=== PATIENT | male | born 1940 | race Caucasian/White ===

== ENCOUNTER → 2016-11-17 | Outpatient (CLI) | payer MEDICARE, OTHER ==
[~2016-11-17] MED LIST: /ESOM40CA PO; ACET-654 PO; ASPI325T5 PO; BISAC5TA PO; LISI5TAB PO; VITA200015 PO; ZOCO40TA PO
--- NOTE | 2016-11-17 10:36 | REP ---
Left lower extremity Duplex Doppler venous ultrasound: Real time compression and duplex Doppler interrogation of the left lower extremity deep venous system is performed. The left common femoral, superficial femoral and popliteal veins are fully compressible with transducer pressure and demonstrate normal spontaneous and phasic flow, without evidence of deep venous thrombosis. Impression: No evidence of deep venous thrombosis of the left lower extremity femoral popliteal venous system. Signed by Saturnino Wilson MD 11/17/2016 10:27 A
== END ==
LOC: M RAD 09:48
PROVIDERS: ATTEND Internal Medicine
DX: M79.662 Pain in left lower leg (principal)

== ENCOUNTER 2017-04-10 09:40 | Emergency (ER) | payer MEDICARE, OTHER ==
[~2017-04-10] VITALS: Ht 175.3 cm; Wt 93.9 kg
[2017-04-10] MEDS ORDERED: LOSA50TA20 PO (09:58)
[2017-04-10] MEDS ORDERED: AMLO5TAB2 (09:58)
[2017-04-10] MEDS ORDERED: ROPI2TAB (09:58)
[2017-04-10] MEDS ORDERED: MONT10TA2 PO (09:58)
[2017-04-10] MEDS ORDERED: FURO20TA2 (09:58)
[2017-04-10 11:26] LABS: BASO % 0.7 % (0.0-1.0); EOS # 0.2 K/mm3 (0.0-0.50); EOS % 2.5 % (0.0-3.0); LARGE UNSTAINED CELL # 0.1 K/mm3 (0.0-0.4); LARGE UNSTAINED CELL % 1.4 % (0.0-4.0); LYMPH # 0.9 K/mm3 (1.5-4.5); LYMPH % 14.2 % (24.0-44.0); MEAN CORPUSCULAR HEMOGLOBIN 31.9 pg (27.0-33.0); MEAN CORPUSCULAR HGB CONC 34.7 g/dl (32.0-36.5); MEAN CORPUSCULAR VOLUME 91.7 fl (80.0-96.0); MONO # 0.4 K/mm3 (0.0-0.8); MONO % 5.5 % (0.0-5.0); NEUTROPHILS % 75.7 % (36.0-66.0); PLATELET COUNT, AUTOMATED 203 k/mm3 (150-450); RED CELL DISTRIBUTION WIDTH 12.2 % (11.5-14.5); WHITE BLOOD COUNT 6.6 K/mm3 (4.0-10.0)
[2017-04-10 11:57] LABS: ANION GAP 7 MEQ/L (8-16); BLOOD UREA NITROGEN 20 MG/DL (7-18); CALCIUM LEVEL 9.1 MG/DL (8.8-10.2); CARBON DIOXIDE LEVEL 30 MEQ/L (21-32); CHLORIDE LEVEL 102 MEQ/L (98-107); CREATININE FOR GFR 1.09 MG/DL (0.70-1.30); GLOMERULAR FILTRATION RATE > 60.0 (>42); GLUCOSE, FASTING 96 MG/DL (83-110); MAGNESIUM LEVEL 2.4 MG/DL (1.8-2.4); POTASSIUM SERUM 4.1 MEQ/L (3.5-5.1); SODIUM LEVEL 139 MEQ/L (136-145)
[2017-04-10 14:22] VITALS: BP 180/90
--- NOTE | 2017-04-10 19:27 | REP ---
Chest x-ray: Two views: History: Chest pain. Comparison chest x-ray 12/08/2014. There is benign pleural thickening along the right lateral chest wall. There is a granulomatous calcification in the in the right base laterally as well. Some mild linear fibrosis is seen on the right. These findings are unchanged. Heart is not felt to be enlarged. The diaphragms are somewhat flattened and the lungs are slightly hyperinflated. There are degenerative changes in the thoracic spine and aorta. Pulmonary vasculature is not increased. Impression: Pleuroparenchymal fibrosis and calcified granuloma right base. Otherwise no acute disease. Signed by Cade Calloway MD 04/11/2017 08:00 A
--- NOTE | 2017-04-10 21:14 | ECGEPIP ---
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
== END 2017-04-10 14:27 | disposition home or self-care (01) ==
LOC: M ED 09:40
DX: R00.1 Bradycardia, unspecified (principal); I51.9 Heart disease, unspecified; Z95.5 Presence of coronary angioplasty implant and graft; Z82.49 Family history of ischemic heart disease and other diseases of the circulatory system; J84.10 Pulmonary fibrosis, unspecified; Z79.82 Long term (current) use of aspirin; Z79.899 Other long term (current) drug therapy; Z88.8 Allergy status to other drugs, medicaments and biological substances

== ENCOUNTER 2017-04-22 06:47 | Emergency (ER) | payer MEDICARE, OTHER ==
[~2017-04-22] VITALS: Ht 175.3 cm; Wt 90.9 kg
[~2017-04-22 06:47] MED LIST changes: +AMLO5TAB2; +FURO20TA2; +LOSA50TA20 PO; +MONT10TA2 PO; +ROPI2TAB
[2017-04-22] MEDS ORDERED: ROPI2TAB PO (06:59)
[2017-04-22] MEDS ORDERED: REQU5TAB PO (06:59)
[2017-04-22 07:01] VITALS: BP 161/69
--- NOTE | 2017-04-22 10:26 | ECGEPIP ---
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
== END 2017-04-22 07:37 | disposition home or self-care (01) ==
LOC: M ED 06:47
DX: R00.1 Bradycardia, unspecified (principal); I10 Essential (primary) hypertension; Z79.82 Long term (current) use of aspirin; Z79.899 Other long term (current) drug therapy; Z88.8 Allergy status to other drugs, medicaments and biological substances; Z95.5 Presence of coronary angioplasty implant and graft

== ENCOUNTER 2017-04-27 16:46 | Inpatient (IN) | payer MEDICARE, OTHER ==
[~2017-04-27] VITALS: Ht 175.3 cm; Wt 96.3 kg
[~2017-04-27 16:46] MED LIST changes: +REQU5TAB PO; +ROPI2TAB PO
[2017-04-27] MEDS ORDERED: FURO20TA2 PO (17:00)
[2017-04-27 20:01] LABS: BASO % 0.4 % (0.0-1.0); EOS # 0.2 K/mm3 (0.0-0.50); EOS % 3.9 % (0.0-3.0); LARGE UNSTAINED CELL # 0.2 K/mm3 (0.0-0.4); LARGE UNSTAINED CELL % 2.8 % (0.0-4.0); LYMPH # 1.2 K/mm3 (1.5-4.5); LYMPH % 20.7 % (24.0-44.0); MEAN CORPUSCULAR HEMOGLOBIN 32.2 pg (27.0-33.0); MEAN CORPUSCULAR HGB CONC 35.2 g/dl (32.0-36.5); MEAN CORPUSCULAR VOLUME 91.6 fl (80.0-96.0); MONO # 0.4 K/mm3 (0.0-0.8); MONO % 7.5 % (0.0-5.0); NEUTROPHILS # 3.6 K/mm3 (1.8-7.7); NEUTROPHILS % 64.7 % (36.0-66.0); PLATELET COUNT, AUTOMATED 171 k/mm3 (150-450); RED CELL DISTRIBUTION WIDTH 12.6 % (11.5-14.5); WHITE BLOOD COUNT 5.6 K/mm3 (4.0-10.0)
[2017-04-27 20:42] LABS: ALBUMIN 3.7 GM/DL (3.2-5.2); ALBUMIN/GLOBULIN RATIO 1.37 (1.00-1.93); ALKALINE PHOSPHATASE 62 U/L (45-117); ALT/SGPT 23 U/L (12-78); ANION GAP 8 MEQ/L (8-16); AST/SGOT 22 U/L (15-37); BILIRUBIN,DIRECT 0.2 MG/DL (0.0-0.2); BILIRUBIN,TOTAL 0.8 MG/DL (0.2-1.0); BLOOD UREA NITROGEN 19 MG/DL (7-18); CALCIUM LEVEL 8.3 MG/DL (8.8-10.2); CARBON DIOXIDE LEVEL 30 MEQ/L (21-32); CHLORIDE LEVEL 106 MEQ/L (98-107); CREATININE FOR GFR 1.08 MG/DL (0.70-1.30); GLOMERULAR FILTRATION RATE > 60.0 (>42); GLUCOSE, FASTING 83 MG/DL (83-110); SODIUM LEVEL 144 MEQ/L (136-145); TOTAL PROTEIN 6.4 GM/DL (6.4-8.2)
[2017-04-27] MEDS ORDERED: SIMVASTATIN 20 MG TAB PO ONE (21:00)
--- NOTE | 2017-04-27 21:20 | REPUSA ---
CT of the head Clinical history: altered mental status. Comparison: 12/01/2012. Technique: Multiple axial CT images were obtained through the head without administration of contrast . Findings: The ventricles and sulci are symmetric bilaterally. There is no evidence of acute hemorrhag e or infarct. There is no midline shift, mass effect, or extra-axial fluid collection. The osseous st ructures are unremarkable. The visualized paranasal sinuses and mastoid air cells are clear. Impression: Negative study.
[2017-04-27] MEDS ORDERED: PANT40TA2 PO (22:28)
[2017-04-27] MEDS ORDERED: ADV250INH INH (22:30)
[2017-04-27] MEDS ORDERED: FEXO180T58 PO (22:30)
[2017-04-27] MEDS ORDERED: AMLO5TAB2 PO (22:30)
[2017-04-28] VITALS (7 sets, daily range): BP systolic 138–160; BP diastolic 68–84
[2017-04-28] MEDS ORDERED: ACETAMINOPHEN TAB 650MG DOSE (2X325MG) PO PRN (01:30)
--- NOTE | 2017-04-28 04:30 | REPUSA ---
CLINICAL HISTORY: Dizziness, carotid bruit. COMMENTS: Real time sonography with duplex doppler of the carotid arteries bilaterally was performed. Evaluation reveals no evidence of atheromatous plaque within the carotid arteries bilaterally. Calcified atheromatous plaques in the carotid bulbs extending to the proximal aspect of the internal and external carotid arteries. Normal peak systolic velocities. Right ICA/CCA ratio 1.31. Left ICA/CCA ratio 1.09. Flow in the right vertebral artery is antegrade. Flow in the left vertebral artery is antegrade. IMPRESSION: Bilateral less than 50% stenosis of the internal carotid arteries secondary to atheromatous disease. Antegrade flow in the vertebral arteries. Thank you for your kind referral of this patient.
--- NOTE | 2017-04-28 08:30 | ECGEPIP ---
Stationary ECG Study [facility] Test Date: 2017-04-28 Pat Name: JUAN JOSE MATOS Department: ED - INP Room: [place] [address] Gender: M Line Technician: : 1940 Requested By: Virgen Whitaker [facility] Order Number: [id number] Reading MD: Brett Mckeon Measurements Intervals [place] Rate: 52 P: 62 MT: 211 QRS: 9 QRSD: 94 T: 4 QT: 427 QTc: 400 Interpretive Statements Sinus bradycardia with first degree AV block Early anterior R wave progression Consider left ventricular hypertrophy No significant change when compared to prior tracing of 04/27/2017 Electronically Signed On 04-28-2017 8:29:56 EDT by Brett Mckeon
[2017-04-28 08:58] LABS: ALBUMIN 3.7 GM/DL (3.2-5.2); ALBUMIN/GLOBULIN RATIO 1.37 (1.00-1.93); ALKALINE PHOSPHATASE 66 U/L (45-117); ALT/SGPT 24 U/L (12-78); ANION GAP 5 MEQ/L (8-16); AST/SGOT 18 U/L (15-37); BILIRUBIN,TOTAL 0.8 MG/DL (0.2-1.0); BLOOD UREA NITROGEN 19 MG/DL (7-18); CALCIUM LEVEL 8.1 MG/DL (8.8-10.2); CARBON DIOXIDE LEVEL 30 MEQ/L (21-32); CHLORIDE LEVEL 109 MEQ/L (98-107); CREATININE FOR GFR 1.06 MG/DL (0.70-1.30); GLOMERULAR FILTRATION RATE > 60.0 (>42); GLUCOSE, FASTING 96 MG/DL (83-110); MAGNESIUM LEVEL 2.2 MG/DL (1.8-2.4); POTASSIUM SERUM 4.2 MEQ/L (3.5-5.1); SODIUM LEVEL 144 MEQ/L (136-145); T UPTAKE 38 % (33-40); THYROXINE (T4) 9.5 UG/DL (4.5-12.0); TOTAL PROTEIN 6.4 GM/DL (6.4-8.2)
[2017-04-28 09:01] LABS: BASO % 0.6 % (0.0-1.0); EOS # 0.2 K/mm3 (0.0-0.50); EOS % 3.7 % (0.0-3.0); LARGE UNSTAINED CELL # 0.1 K/mm3 (0.0-0.4); LYMPH # 0.8 K/mm3 (1.5-4.5); LYMPH % 14.7 % (24.0-44.0); MEAN CORPUSCULAR VOLUME 91.6 fl (80.0-96.0); MONO # 0.5 K/mm3 (0.0-0.8); NEUTROPHILS # 3.7 K/mm3 (1.8-7.7); PLATELET COUNT, AUTOMATED 183 k/mm3 (150-450); RED CELL DISTRIBUTION WIDTH 12.4 % (11.5-14.5); WHITE BLOOD COUNT 5.3 K/mm3 (4.0-10.0)
[2017-04-28 09:04] LABS: MEAN CORPUSCULAR HGB CONC 36.8 g/dl (32.0-36.5)
[2017-04-28] MEDS: MONTELUKAST 10 MG TAB PO SCH (09:23)
[2017-04-28] MEDS: ASPIRIN ENTERIC 325 MG TAB PO SCH (09:23)
[2017-04-28] MEDS: PANTOPRAZOLE 40MG TAB (PROTONIX) PO SCH (09:24)
[2017-04-28] MEDS: FUROSEMIDE 20 MG TAB PO SCH (09:24)
[2017-04-28] MEDS: FEXOFENADINE 60 MG TAB PO SCH (09:24)
[2017-04-28] MEDS: amLODIPine 5 MG TAB PO SCH (09:26)
[2017-04-28] MEDS: LOSARTAN 50 MG TAB PO SCH (09:26)
[2017-04-28] MEDS: ADVAIR HFA 115/21MCG INHALER INH SCH (11:21)
--- NOTE | 2017-04-28 12:34 | HPE ---
DATE OF ADMISSION: 04/28/2017 CHIEF COMPLAINT: Altered mental status. This is a 76-year-old male with a history of hypertension, coronary artery disease, gastroesophageal reflux disease (GERD), hyperlipidemia, diverticulosis. His reports that he has been seeing weird off the wall things, seeing a man in a yellow coat across the street. They have been going on for 3 or 4 days per the granddaughter. He had some hallucinations off and on for at least a week. He was going to go to the office. Dr. Arellano, his primary care provider, instructed him to come to the emergency room. He was seen in the emergency room (ER) for bradycardia with a heart rate in the 40s on 04/22/2017 and was set up for an outpatient followup with Dr. Talbert. The patient states he did go. He believes he wore a monitor. Upon arrival in the emergency room, blood pressure was 170/81, pulse was 52, temperature 99. Oxygen saturation was 97% on room air. Laboratory studies were done. WBC was 5.6, hemoglobin 13.4, hematocrit 38.2, platelets were 171. Electrolytes were normal. BUN was 19, creatinine was 1.08. CPK was 209. Troponin was less than 0.02. Lactic acid was 0.8. He had a CT of his head, which was negative. He was alert and oriented to person and place but was a poor historian when discussing when he saw his doctor last, if he saw the regional engagement consultant, what he had done. He had no complaints of weakness of extremities, tingling or numbness of extremities. No blurry or double vision or headache, just, per the granddaughter, seeing things, saying inappropriate things that made no sense. Physical exam was unremarkable. Telemetry showed heart rate in the 40s. The patient will be admitted to observation status to the service of Dr. Charlton for altered mental status and bradycardia on the progressive care unit (PCU). ALLERGIES: ATORVASTATIN. PRIMARY CARE PROVIDER: Dr. Karon Arellano SOCIAL HISTORY: He is . Ethyl alcohol (ETOH): He quit n 1986 Smoking History: He smoked 2-1/2 packs a day for, he states, many years. He quit in 1969. PAST MEDICAL HISTORY: Hypertension. Coronary artery disease. Gastroesophageal reflux disease. Vitamin D deficiency. Hyperlipidemia. Diverticulosis. Environmental allergies. PAST SURGICAL HISTORY: Two cardiac stents, 2002. Back surgery, 1986. Skin graft and surgery times three to the right arm from compartment syndrome caused by streptococcus infection. Right ankle surgery, 1969. Right knee surgery, 1981. CURRENT MEDICATIONS: - amlodipine 5 mg by mouth daily - aspirin 325 mg by mouth daily - fexofenadine 180 mg by mouth daily - furosemide 20 mg by mouth daily - losartan 50 mg by mouth daily - Singulair 10 mg by mouth daily - pantoprazole 40 mg by mouth daily - simvastatin 40 mg by mouth daily - Advair Diskus 250-50 one inhalation twice a day - vitamin D 2000 units by mouth daily - Requip 2 mg by mouth nightly, which I will hold at this time as it can cause hallucinations. FAMILY HISTORY: Noncontributory. REVIEW OF SYSTEMS: No complaint of headache. No blurry or double vision. No fever, no chills, no tinnitus. No hoarseness. No difficulty swallowing. No lightheadedness. He says he has had dizziness off and on and per the granddaughter, she believes he has had it off and on for approximately 2 months. He is unsure of how long he has had it. Cardiovascular: No complaints of chest pain, shortness of breath, palpitations or edema. Respiratory: No chronic cough. No sputum production. No hemoptysis. No orthopnea. No wheeze. Gastrointestinal: No nausea, vomiting or diarrhea. No hematochezia. No melena. No complaints of abdominal pain. Genitourinary: No hematuria, dysuria, frequency. Musculoskeletal: No joint redness or swelling. Endocrine: No polyuria, polydipsia, polyphagia. Hematological: No history of anemia. Neurological: No history of seizures. No paresthesias or paralysis. Altered mental status, hallucinations - visual hallucinations. Psychological: No anxiety, depression or suicidal ideations. PHYSICAL EXAMINATION: A 76-year-old cooperative male in no acute distress. Blood pressure 143/65, pulse 48, respirations 18, oxygen saturation 97% on room air. The patient is alert and oriented to person, place and time. Pupils are equal and reactive to light. Extraocular movements intact. Cornea and sclerae clear. Conjunctivae is normal. No facial asymmetry. Pharynx: Tongue and gums pink and moist. Tongue is midline. Neck is supple without lymphadenopathy. No thyromegaly. No goiter. Carotids: 2+ without bruits. Chest is clear to auscultation without wheeze or retractions. Heart is regular. Abdomen is benign. Bowel sounds are positive. Genital/Rectal: Not done. Extremities show equal strength, full range of motion. No cyanosis, clubbing or edema. Peripheral pulses equal and palpable bilaterally. Skin is warm and dry. IMPRESSION AND PLAN: Altered mental status, visual hallucinations, episodic dizziness, hypertension. The patient will be admitted to progressive care unit (PCU). Will get a carotid ultrasound, serial cardiac enzymes. Repeat CBC and CMP, thyroid profile. The patient will admitted to the PCU to the service of Dr. Charlton, observation status, telemetry monitoring for bradycardia.
[2017-04-28] MEDS: SIMVASTATIN 40 MG TAB PO SCH (21:03)
[2017-04-29] MEDS: ADVAIR HFA 115/21MCG INHALER INH SCH ×3 (02:51→21:11)
[2017-04-29 04:00] VITALS: BP 142/90
--- NOTE | 2017-04-29 05:51 | ECGEPIP ---
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
--- NOTE | 2017-04-29 07:37 | IPNPDOC ---
Text Note Date of Service The patient was seen on 04/29/17. NOTE Subjective: Patient seen and examined at bedside. Apparently patient was restless last night , but easily re-directed. This morning he is ambiguous regarding his recollection of overnight events. He denies any medical complaints. He is agreeable with remaining in the hospital for further workup. Objective: General: NAD, lying comfortably in bed HEENT: NC/AT, EOMI, PERRL Lungs: CTA B/L Heart: +S1S2, bradycardic, systolic murmur Abd: soft, NT, +BS, obese Ext: no edema, maculopapular rash over right knee Neuro: strength 5/5 B/L upper/lower extremities, sensation intact throughout, face symmetrical, CN II-XII grossly intact Psych: alert, awake, oriented to person and time Assessment/Plan: 76 yo male admitted for altered mental status. 1. AMS - no clear acute etiology - suspect underlying dementia - will obtain MRI/MRA for further evaluation 2. Chronic bradycardia - patient states he has been following with Dr. Talbert 3. HTN - continue norvasc, losartan 4. CAD - s/p PCI 2002 - continue statin, aspirin, ARB 5. Hyperlipidemia - continue simvastatin 6. GERD - protonix 7. DVT prophylaxis - mechanical prophylaxis VS,Fishbone, I+O VS, Fishbone, I+O Laboratory Tests 04/28/17 08:04 Red Blood Count 4.19 L, Mean Corpuscular Volume 91.6, Mean Corpuscular Hemoglobin 34.0 H, Mean Corpuscular Hemoglobin Concent 36.8 H, Red Cell Distribution Width 12.4, Neutrophils (%) (Auto) 70.0 H, Lymphocytes (%) (Auto) 14.7 L, Monocytes (%) (Auto) 9.0 H, Eosinophils (%) (Auto) 3.7 H, Basophils (%) (Auto) 0.6, Neutrophils # (Auto) 3.7, Lymphocytes # (Auto) 0.8 L, Monocytes # ( Auto) 0.5, Eosinophils # (Auto) 0.2, Basophils # (Auto) 0.0, Calcium Level 8.1 L , Aspartate Amino Transf (AST/SGOT) 18, Alanine Aminotransferase (ALT/SGPT) 24, Alkaline Phosphatase 66, Total Bilirubin 0.8, Total Protein 6.4, Albumin 3.7 Vital Signs Date Time Temp Pulse Resp B/P (MAP) Pulse Ox O2 Delivery O2 Flow Rate FiO2 04/29/17 04:00 97.4 64 16 142/90 (107) 99 Room Air LAUREL HUDSON MD Apr 29, 2017 07:37
[2017-04-29 08:00] VITALS: BP 140/72
[2017-04-29] MEDS: ASPIRIN ENTERIC 325 MG TAB PO SCH (08:26)
[2017-04-29] MEDS: PANTOPRAZOLE 40MG TAB (PROTONIX) PO SCH (08:28)
[2017-04-29] MEDS: FEXOFENADINE 60 MG TAB PO SCH (08:28)
[2017-04-29] MEDS: FUROSEMIDE 20 MG TAB PO SCH (08:28)
[2017-04-29 08:33] LABS: ANION GAP 8 MEQ/L (8-16); BLOOD UREA NITROGEN 16 MG/DL (7-18); CALCIUM LEVEL 8.6 MG/DL (8.8-10.2); CARBON DIOXIDE LEVEL 28 MEQ/L (21-32); CHLORIDE LEVEL 106 MEQ/L (98-107); CREATININE FOR GFR 0.95 MG/DL (0.70-1.30); GLOMERULAR FILTRATION RATE > 60.0 (>42); GLUCOSE, FASTING 104 MG/DL (83-110); POTASSIUM SERUM 4.1 MEQ/L (3.5-5.1); SODIUM LEVEL 142 MEQ/L (136-145)
[2017-04-29 08:34] LABS: BASO % 0.4 % (0.0-1.0); EOS % 0.6 % (0.0-3.0); LARGE UNSTAINED CELL # 0.1 K/mm3 (0.0-0.4); LARGE UNSTAINED CELL % 0.8 % (0.0-4.0); LYMPH # 0.5 K/mm3 (1.5-4.5); LYMPH % 7.5 % (24.0-44.0); MEAN CORPUSCULAR HEMOGLOBIN 32.4 pg (27.0-33.0); MEAN CORPUSCULAR HGB CONC 35.4 g/dl (32.0-36.5); MEAN CORPUSCULAR VOLUME 91.5 fl (80.0-96.0); MONO # 0.3 K/mm3 (0.0-0.8); MONO % 3.7 % (0.0-5.0); NEUTROPHILS # 5.9 K/mm3 (1.8-7.7); NEUTROPHILS % 86.9 % (36.0-66.0); PLATELET COUNT, AUTOMATED 186 k/mm3 (150-450); RED CELL DISTRIBUTION WIDTH 12.4 % (11.5-14.5); WHITE BLOOD COUNT 6.8 K/mm3 (4.0-10.0)
[2017-04-29] MEDS: amLODIPine 5 MG TAB PO SCH (08:34)
[2017-04-29] MEDS: LOSARTAN 50 MG TAB PO SCH (08:34)
[2017-04-29] MEDS: MONTELUKAST 10 MG TAB PO SCH (08:38)
[2017-04-29 12:00] VITALS: BP 158/80
[2017-04-29 16:00] VITALS: BP 144/80
[2017-04-29] MEDS: SIMVASTATIN 40 MG TAB PO SCH (20:14)
[2017-04-29 20:15] VITALS: BP 142/84
[2017-04-30 00:29] VITALS: BP 133/64
[2017-04-30 04:00] VITALS: BP 149/66
[2017-04-30] MEDS: ADVAIR HFA 115/21MCG INHALER INH SCH ×2 (07:40→20:59)
[2017-04-30 08:22] VITALS: BP 128/72
[2017-04-30] MEDS: FEXOFENADINE 60 MG TAB PO SCH (09:04)
[2017-04-30] MEDS: ASPIRIN ENTERIC 325 MG TAB PO SCH (09:04)
[2017-04-30] MEDS: FUROSEMIDE 20 MG TAB PO SCH (09:04)
[2017-04-30] MEDS: MONTELUKAST 10 MG TAB PO SCH (09:04)
[2017-04-30] MEDS: LOSARTAN 50 MG TAB PO SCH (09:05)
[2017-04-30] MEDS: amLODIPine 5 MG TAB PO SCH (09:06)
[2017-04-30] MEDS: PANTOPRAZOLE 40MG TAB (PROTONIX) PO SCH (09:06)
[2017-04-30 12:00] VITALS: BP 110/70
--- NOTE | 2017-04-30 12:50 | IPN ---
DATE: 04/30/2017 Mr. Ballard has been up and walking around today with the staff in the hallway. He is somewhat overactive, but not agitated, although when his is in the room he is quite confrontational and is convinced that she is having an affair, which seems exceedingly unlikely and the patient's denies. Temperature is 99.3, T-max 101.1, pulse 52, respiratory rate 18, blood pressure 128/72, 98% on room air. Intake and output notable for a positive fluid balance of 840 yesterday, no bowel movements. Body mass index (BMI) 28.7. He is awake, answering questions appropriately, somewhat labile in his affect. He is averting to my gaze. Neck is supple. Breathing is symmetrical, rested. I-to-E ratio is 1:3. He is speaking in complete sentences. No accessory muscle use. Heart is distant sounding. Normal S1 and S2. He is borderline bradycardic with a rate right around 60 on my exam. Radial pulses 2+. Capillary refill is less than 2 seconds. Abdomen is soft, doughy, nontender. There is no significant lower extremity edema. White count is 6.8, hemoglobin 15.1, and platelets of 186. BUN 16, creatinine 0.95. My assessment is as follows: This is a 76-year-old admitted with metabolic encephalopathy. Plan is as follows: 1. Metabolic encephalopathy. This is apparently a waxing and waning course over months. This is much worse than baseline. This is associated with fever of infectious etiology. The patient has been cultured. There is no way to obtain a lumbar puncture based on his mental status currently. Will start empiric antibiotic therapy and obtain a lumbar puncture when able. MRI and MRA are not likely to be obtained at this point, again based on his mental status. 2. The patient has chronic bradycardia and is followed by Dr. Talbert. No evidence of heart block on the monitor. 3. The patient has hypertension, on Norvasc and losartan. 4. The patient has coronary artery disease, status post percutaneous intervention in 2002. 5. The patient has hyperlipidemia. 6. The patient has gastroesophageal reflux disease (GERD). I did discuss his case with the patient's in person.
[2017-04-30] MEDS: HALOPERIDOL 5 MG/ML VIAL (J1630) IV PRN (13:08)
[2017-04-30] MEDS: risperiDONE 0.5 MG TAB PO SCH ×3 (13:36→22:17)
[2017-04-30] MEDS: ACYCLOVIR IV SCH ×2 (13:36→22:17)
[2017-04-30] MEDS: NS IV SCH ×2 (13:36→22:17)
[2017-04-30 16:00] VITALS: BP 160/80
[2017-04-30 20:00] VITALS: BP 132/64
[2017-04-30] MEDS: SIMVASTATIN 40 MG TAB PO SCH (22:17)
[2017-05-01] VITALS: BP 133/63
[2017-05-01 04:00] VITALS: BP 137/61
[2017-05-01] MEDS: NS IV SCH ×2 (06:32→14:55)
[2017-05-01] MEDS: ACYCLOVIR IV SCH ×2 (06:32→14:55)
[2017-05-01] MEDS ORDERED: LORazepam 2 MG/ML VIAL (J2060) IV ONE (07:00)
[2017-05-01 08:00] VITALS: BP 151/69
[2017-05-01] MEDS: ADVAIR HFA 115/21MCG INHALER INH SCH ×2 (08:20→20:52)
[2017-05-01] MEDS: FEXOFENADINE 60 MG TAB PO SCH (08:46)
[2017-05-01] MEDS: FUROSEMIDE 20 MG TAB PO SCH (08:47)
[2017-05-01] MEDS: risperiDONE 0.5 MG TAB PO SCH (08:47)
[2017-05-01] MEDS: LOSARTAN 50 MG TAB PO SCH (08:47)
[2017-05-01] MEDS: MONTELUKAST 10 MG TAB PO SCH (08:48)
[2017-05-01] MEDS: amLODIPine 5 MG TAB PO SCH (08:48)
[2017-05-01 12:00] VITALS: BP 154/74
--- NOTE | 2017-05-01 16:51 | IPN ---
DATE: 05/01/2017 Mr. Ballard slept most of the night. There are no complaints of pain, chest pain, shortness of breath. Would like to be out of the hospital today. Temperature is 97.2, pulse 64, respirations 18, blood pressure 151/69, 98% on room air, maximum temperature in the last 24 hours are all within the normal range. Intake and output notable for a positive fluid balance of 1205. Body mass index 29.0. He is awake, appropriately interactive. Somewhat focused on leaving the hospital and seems somewhat distracted in his thought process. Mucous membranes moist. Neck supple. Breathing is symmetrical. Inspiratory to expiratory (I-to-E) ratio is 1:3. No accessory muscle use. Speaking in complete sentences. Heart is distant sounding. Normal S1, S2. He did have four beats of ventricular tachycardia this morning. Normal QTC on EKG. Abdomen soft, doughy, nontender. White cell count 6.8, hemoglobin 15.1, platelets of 186. BUN 16, creatinine 0.95. Urine culture is no growth of clinical significance for one organism. Blood culture, which he would allow one to be taken, is thus far negative. ASSESSMENT: This is a 76-year-old with metabolic encephalopathy. PLAN: 1. Metabolic encephalopathy. The patient did have fever yesterday. I would like to obtain a lumbar puncture (LP) and an MRI. Patient is unable to get MRI based on the fact that he is grossly claustrophobic. He is consenting to an LP today. Ativan has been ordered to assist in this. 2. Patient has chronic bradycardia. He is followed by Dr. Talbert. No evidence of heart block on monitor or EKG. He has had four betas of ventricular tachycardia. QTC is in the acceptable limits. 3. Patient has hypertension, on Norvasc and losartan. 4. Patient has coronary artery disease, status post percutaneous intervention in 2002. 5. Patient has hyperlipidemia. 6. Patient has gastroesophageal reflux disease (GERD). 7. Patient's mental status is improved from yesterday, but he does not have the capacity to make reasonable decisions at the time of my evaluation this morning.
[2017-05-01 17:06] LABS: GLUCOSE CSF 71 MG/DL (40-75)
[2017-05-01 17:40] LABS: APPEARANCE, CSF CLEAR (CLEAR); COLOR, CSF COLORLESS (COLORLESS); CSF DIFF IF INDICATED? NO (NO); CSF TUBE# CELL CNT TUBE 1
[2017-05-01 17:43] LABS: APPEARANCE, CSF CLEAR (CLEAR); COLOR, CSF COLORLESS (COLORLESS); CSF DIFF IF INDICATED? NO (NO); CSF TUBE# CELL CNT TUBE 4
[2017-05-01] MEDS: HALOPERIDOL 5 MG/ML VIAL (J1630) IV PRN (18:01)
[2017-05-01 20:00] VITALS: BP 128/98
--- NOTE | 2017-05-01 21:10 | ECGEPIP ---
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
[2017-05-02] VITALS (7 sets, daily range): BP systolic 134–175; BP diastolic 61–79
[2017-05-02] MEDS: SIMVASTATIN 40 MG TAB PO SCH ×2 (00:30→21:21)
[2017-05-02] MEDS: ASPIRIN ENTERIC 325 MG TAB PO SCH ×2 (00:31→21:21)
[2017-05-02] MEDS: PANTOPRAZOLE 40MG TAB (PROTONIX) PO SCH ×2 (00:31→21:21)
[2017-05-02] MEDS: risperiDONE 0.5 MG TAB PO SCH ×3 (00:31→21:21)
[2017-05-02] MEDS: ADVAIR HFA 115/21MCG INHALER INH SCH ×2 (07:50→21:02)
[2017-05-02] MEDS: FEXOFENADINE 60 MG TAB PO SCH ×2 (08:34→09:00)
[2017-05-02] MEDS: HALOPERIDOL 5 MG/ML VIAL (J1630) IV PRN (08:35)
[2017-05-02] MEDS: FUROSEMIDE 20 MG TAB PO SCH ×2 (08:35→13:38)
[2017-05-02] MEDS: MONTELUKAST 10 MG TAB PO SCH (08:35)
[2017-05-02] MEDS: LOSARTAN 50 MG TAB PO SCH (08:35)
--- NOTE | 2017-05-02 09:40 | REP ---
LUMBAR PUNCTURE: The procedure was performed by Izzy Stark under the direct supervision of Dr. Wilson. The procedure along with its risks, benefits and complications were discussed with the patient prior to the examination. Informed consent was obtained both verbally and written. An appropriate site was chosen for needle entry under fluoroscopic guidance. This are was marked, prepped and draped in the usual sterile fashion. A procedural time-out was performed to ensure that the correct patient site and procedure were being performed. Local infiltrative anesthesia was achieved using 1% Lidocaine. Lumbar puncture was performed under fluoroscopic guidance at L3-4 via a right oblique sublaminar approach using a 3.5-inch, 22-gauge spinal needle. Retro free flow of clear CSF was obtained. 12 mL of CSF was collected and sent to the lab for investigation; the results pending. The patient tolerated the procedure well and had no immediate complications. Fluoroscope time: 39 seconds. IMPRESSION: Fluoroscopic-guided lumbar puncture with no immediate complications. Signed by Eric Wilson MD 05/02/2017 04:52 P
[2017-05-02] MEDS: amLODIPine 5 MG TAB PO SCH (13:38)
--- NOTE | 2017-05-02 16:46 | IPN ---
DATE: 05/02/2017 Mr. Ballard became somewhat agitated yesterday after having his lumbar puncture. He did have a dose of Ativan which apparently was quite activating for him. Last night he did receive Haldol and Risperdal and slept fitfully. This morning he has no complaints of pain and he wants to go home. Temperature 98, pulse 64, respiratory rate 18, blood pressure 157/67, 99% on room air. Intake and output notable for a negative fluid status of -180. No bowel movements noted. Weight is 90.2 kg, body mass index 29.4. He is awake, appropriately interactive. Breathing is symmetrical and rested. Heart is distant sounding. Abdomen is soft, doughy, nontender. White count 6.8, hemoglobin 15.1, and platelets of 186. BUN 16, creatinine 0.95. Cerebrospinal fluid (CSF) yesterday was remarkably unremarkable, normal protein, normal glucose, basically a champagne tap. My assessment is as follows: This is a 76-year-old with metabolic encephalopathy. Plan is as follows: 1. Metabolic encephalopathy. I was concerned about the possibility of encephalitis, which seems less likely. I did stop acyclovir. We are going to be unable to get an MRI on this patient. I am unsure what the underlying cause of the encephalopathy is. 2. Patient has chronic bradycardia. No evidence of heart block on EKG or monitor. He can likely be transferred to medical/surgical. 3. Patient has hypertension, which is reasonably well controlled with the current setting. 4. Patient has coronary artery disease, status post percutaneous intervention remotely. 5. Patient has hyperlipidemia. 6. Patient has gastroesophageal reflux disease (GERD).
--- NOTE | 2017-05-02 22:14 | CR ---
DATE OF CONSULTATION: 05/02/2017 REFERRING PROVIDER: Dr. Faisal Carver REASON FOR CONSULTATION: Altered mental status, metabolic encephalopathy. The patient is a 76-year-old male with a past medical history significant for hypertension, coronary artery disease, presenting to [facility] with visual hallucinations. The patient initially had visual hallucinations at the end of December and early January. This first occurred when the patient was at a [facility]. The next day the patient went to go see his primary care doctor, and the hallucinations had subsided. The patient recently started having hallucinations within the past week. The patient was noted to hear commotion outside as well as see people whom he was having a conversation with in the house. Presently the patient has been taken off of his Requip, and his home medication list includes 5 mg Requip that the patient takes at bedtime and 2 mg that he takes in the morning. It is unclear when the patient was placed on Requip. The patient's daughter states that in early January he was started on a new medicine that she looked up and found that is called something beginning with the letter P. She is unsure if it was pramipexole. The patient states he has been treated for restless leg syndrome, although the patient's symptoms include cramping of his muscles below his knees, including his velasquez, gastroc muscles, and foot. The patient denies having any restlessness of his lower extremities or any abnormal paresthesias. He puts on a cream at times, which is helpful in alleviating his muscle cramps. The patient states it only affects his left lower extremity. When the patient was brought to [facility], he was noted to have a temperature. The patient was taken for a spinal tap. The spinal tap was unremarkable with white blood cell (WBC) count 1. Red blood cells (RBC) were not present. Glucose 71, protein 31. The patient's lab work so far has included normal thyroid-stimulating hormone (TSH) and a nonreactive rapid plasma reagin (RPR). His complete blood count (CBC) and comprehensive metabolic panel (CMP) essentially have been unremarkable. The patient has been started on risperidone 0.5 mg twice a day with Haldol as needed. The patient became agitated after receiving Ativan and had to receive Haldol to calm him down. He is able to sleep well through the night it seems. The patient does not have any other cause for visual hallucinations at this time. It is unclear if the patient has baseline Lewy body dementia. I spoke with Dr. Carver, who will be in touch with Dr. Karon Arellano to confirm the timeline of use of ropinirole, which can cause hallucinations. Since the patient has stopped using ropinirole during this hospitalization, he is no longer having visual or auditory hallucinations. Head CT completed so far reveals no acute process. The patient is severely claustrophobic and is refusing to have an MRI. ALLERGIES: ATORVASTATIN. HOME MEDICATIONS: j - Zocor 40 mg by mouth daily - Norvasc 5 mg by mouth daily - Nikole 180 mg by mouth daily - Lasix 20 mg by mouth daily - Cozaar 50 mg by mouth daily - Singulair 10 mg by mouth daily - Advair 115/21 mcg inhaled twice a day - Requip 5 mg by mouth at bedtime - Requip 2 mg by mouth daily PAST MEDICAL HISTORY: 1. Hypertension. 2. Coronary artery disease. 3. Gastroesophageal reflux disease. 4. Vitamin D deficiency. 5. Hyperlipidemia. 6. Diverticulosis. 7. Environmental allergies. PAST SURGICAL HISTORY: 1. Two cardiac stents 2002. 2. Back surgery in 1986. 3. Skin graft surgery times three, right arm, from compartment syndrome, caused by staphylococcus infection. 4. Right ankle surgery 1969. 5. Right knee surgery 1981. FAMILY HISTORY: Noncontributory. REVIEW OF SYSTEMS: A 14-point review of systems negative except as per history of present illness (HPI). PHYSICAL EXAMINATION: Blood pressure 134/68, pulse rate 53, respiratory rate 18, oxygenation 99% on room air. Current height 5 feet 9 inches. Current weight is 90.2 kg. Temperature 98.6 degrees Fahrenheit. The patient is awake, alert, oriented to person, place, and time. Speech, language, comprehension, and repetition are intact. Pupils are 3 mm, round, and reactive to light. Sensation in V1, V2, V3 is intact to light touch. No facial asymmetry to activation. Palate elevates symmetrically. Tongue is midline. No weakness of sternocleidomastoids bilaterally. Hearing is subjectively equal to finger rub. There is no pronator drift. Strength is 5/5, including bilateral deltoids, biceps, triceps, handgrip, iliopsoas, quadriceps, anterior tibialis. Deep tendon reflexes are 2+ throughout. Babinski signs are absent. Sensory is intact to light touch, temperature, and vibration throughout. Coordination: Normal [id number] without any signs of ataxia or dysmetria. Gait is normal. Romberg testing negative. ASSESSMENT: Altered mental status with auditory and visual hallucinations, improving. Etiology of this is unknown at this time, although the patient and family are unclear as to exactly if the patient has been using Requip while at home. Requip can certainly be the cause of the patient's hallucinations more recently. In December and in January the patient may have been on a different medicine that may have caused similar side effects. It is unclear what the name of that medicine was, although the family states it began with the letter P. My suspicion is the patient had been on pramipexole for treatment of restless leg symptoms. I would like to clarify that patient does not have classic symptoms of restless legs based on his description. He describes more of a muscle cramp involving his left lower extremity, anterior velasquez, and gastroc muscles, for which he has to massage the muscles and try to stand on his feet to alleviate the cramp. PLAN 1. Convince the patient to stay in the hospital for at least one more evening as the symptoms continue to improve, and his states that he still not 100% at his baseline, although she does agree that he has not had any further hallucinations within the last 24 hours. The patient will be reassessed tomorrow to see if he can be discharged home. Dr. Carver will get in touch with Dr. Arellano to track down the exact timeline of his restless leg treatments. At this point in time, I would avoid Requip in the future. 2. MRI of the brain can be completed as an outpatient. History obtained from both the patient, the patient's , and daughter.
[2017-05-03 06:00] VITALS: BP 136/93
[2017-05-03] MEDS: ADVAIR HFA 115/21MCG INHALER INH SCH (07:11)
[2017-05-03] MEDS: LOSARTAN 50 MG TAB PO SCH (08:44)
[2017-05-03] MEDS: FEXOFENADINE 60 MG TAB PO SCH (08:44)
[2017-05-03] MEDS: FUROSEMIDE 20 MG TAB PO SCH (08:44)
[2017-05-03 08:45] VITALS: BP 136/93
[2017-05-03] MEDS: risperiDONE 0.5 MG TAB PO SCH (08:45)
[2017-05-03] MEDS: MONTELUKAST 10 MG TAB PO SCH (08:45)
[2017-05-03] MEDS: amLODIPine 5 MG TAB PO SCH (08:45)
--- NOTE | 2017-05-03 15:57 | DSES ---
DATE OF ADMISSION: 04/30/2017 DATE OF DISCHARGE: PROCEDURES PERFORMED DURING THIS STAY: Included a lumbar puncture. No complications of this stay. DISCHARGE DIAGNOSES: 1. Metabolic encephalopathy. 2. Hypertension. 3. Coronary artery disease. 4. Gastroesophageal reflux disease. 5. Vitamin D deficiency. 6. Hyperlipidemia. 7. Diverticulosis. 8 . Environmental allergies. 9. Chronic bradycardia. SUMMARY OF PRESENTATION: This is a 76-year-old gentleman who presented with altered mental status. He was apparently seeing things, saying inappropriate things that made no sense. He had a heart rate in the 40s. He was not hypotensive. He was treated with antipsychotics. Went on to develop a fever. Had a lumbar puncture done, which was remarkably unremarkable. He had been receiving acyclovir until the lumbar puncture result was back. Upon receiving Ativan around the time of the lumbar puncture, it increased his level of agitation. He was unable to obtain an MRI as an inpatient, as he is very claustrophobic. Did not have access to an open MRI. Was seen in consultation by Dr. Murrieta who ordered an electroencephalogram (EEG) and has plans to followup with the patient as an outpatient. It appears as though the underlying cause of presentation is somewhat unclear. He did have one febrile episode during his stay, which could have contributed. He is on Requip, which was discontinued. He did not have any symptomatic bradycardia during his stay. On day of discharge, the patient apparently thought it was time to leave. He called his , got up, and left. His took him home. All the while the staff was looking for him. I discussed this with the by phone. The plan is to continue him on his home medications and hold his Requip. Plan is for followup with Dr. Arellano. The patient's will make that appointment within the next week. Our staff will make the appointment with Dr. Murrieta's group within the next 2-3 weeks. He is to continue Norvasc 5 mg by mouth daily, aspirin 325 mg by mouth daily, vitamin D supplement, fexofenadine daily, Lasix daily 20 mg, losartan 50 mg by mouth daily, Singulair 10 mg by mouth daily, Protonix 40 mg daily, Advair Diskus 250/50 inhaled twice daily, and simvastatin 40 mg by mouth daily. On day of discharge, he is awake, appropriately interactive, pleasantly conversation. Temperature 97,4, pulse 58, respiratory rate 20, blood pressure 136/93, 100% on room air. Breathing is symmetrical and rest. Heart is in a regular rate and rhythm. Abdomen soft, doughy, nontender. White cell count 6.8, hemoglobin 15.1, and creatinine 0.95. Discharge instructions will, again, be mailed to patient's , and I did discuss this case by phone with Dr. Murrieta and Dr. Arellano on the day of discharge.
--- NOTE | 2017-05-03 16:54 | EEG ---
DATE OF PROCEDURE:05/03/2017 REFERRING PHYSICIAN: Dr. Eric Charlton DIAGNOSIS: Metabolic encephalopathy EEG 17-278. HISTORY: Patient is a 76-year-old man who was admitted at [facility] who had a history of visual hallucinations. They improved but started again last week. The patient was treated for restless leg syndrome with ropinirole at that time. He is currently taking Risperdal, aspirin, Protonix, Lasix, losartan, Singulair, Nikole, amlodipine, etc.. TECHNICAL DESCRIPTION: This digital EEG was recorded by 21 scalp ear and two EKG electrodes and was reviewed in bipolar and referential montages following reformatting in 10-20 international electrode placement system. INTERPRETATION: The patient was noted to be in an awake and drowsy states during this EEG. The patient remained confused during this EEG. Resting awake background rhythm consisted of well-formed posterior dominant rhythm with anterior/posterior gradient comprising of 9 Hz alpha activity measuring 15 - 40 microvolts in amplitude. Intermittent bilateral temporal theta slowing was noted. Stage I and II sleep were reviewed and were symmetric bilaterally. Hyperventilation elicited theta slowing of background rhythm. Photic stimulation remained unremarkable. EKG revealed normal sinus rhythm. No epileptiform abnormalities were seen. No clinical or electrographic seizures were recorded. CONCLUSION: This EEG in awake, drowsy states, stage I and II sleep is mildly abnormal due to presence of mild intermittent bilateral temporal slowing consistent with nonspecific diffuse cerebral dysfunction such as seen in encephalopathy due to multiple potential causes including toxic, metabolic, infectious, medication related, infectious or multifocal structural brain abnormalities. No epileptiform abnormalities were seen. Clinical correlation is recommended.
== END 2017-05-03 12:03 | disposition left against medical advice (07) | DRG 72 ==
LOC: M ED 16:46 → M ED INP 04-28 01:21 → M PCU 04-28 14:40 → OBSVTOIN 04-30 12:18 → M MS5PR 05-02 20:30 → UNDODISIN 05-03 12:03
PROVIDERS: ADMIT General Practice; ATTEND Internal Medicine
PROC: 009U3ZX Drainage of Spinal Canal, Percutaneous Approach, Diagnostic (ICD-10-PCS; principal; 2017-04-30)
DX: G93.41 Metabolic encephalopathy (principal); R00.1 Bradycardia, unspecified; I10 Essential (primary) hypertension; K21.9 Gastro-esophageal reflux disease without esophagitis; E55.9 Vitamin D deficiency, unspecified; E78.5 Hyperlipidemia, unspecified; K57.30 Diverticulosis of large intestine without perforation or abscess without bleeding; Z88.8 Allergy status to other drugs, medicaments and biological substances; Z87.891 Personal history of nicotine dependence

== ENCOUNTER → 2017-09-18 | Outpatient (CLI) | payer MEDICARE, OTHER ==
[2017-09-18 18:02] LABS: HEMATOCRIT 40.8 % (42.0-52.0); HEMOGLOBIN 13.6 g/dl (14.0-18.0); MEAN CORPUSCULAR HEMOGLOBIN 31.3 pg (27.0-33.0); MEAN CORPUSCULAR HGB CONC 33.3 g/dl (32.0-36.5); MEAN CORPUSCULAR VOLUME 93.8 fl (80.0-96.0); PLATELET COUNT, AUTOMATED 165 10^3/uL (150-450); RED BLOOD COUNT 4.35 10^6/uL (4.30-6.10); RED CELL DISTRIBUTION WIDTH 12.9 % (11.5-14.5); WHITE BLOOD COUNT 6.6 10^3/uL (4.0-10.0)
[2017-09-18 19:22] LABS: ANION GAP 7 MEQ/L (8-16); BLOOD UREA NITROGEN 16 MG/DL (7-18); CALCIUM LEVEL 8.6 MG/DL (8.8-10.2); CARBON DIOXIDE LEVEL 29 MEQ/L (21-32); CHLORIDE LEVEL 107 MEQ/L (98-107); CREATININE FOR GFR 1.03 MG/DL (0.70-1.30); GLOMERULAR FILTRATION RATE > 60.0 (>42); GLUCOSE, FASTING 102 MG/DL (70-100); POTASSIUM SERUM 4.2 MEQ/L (3.5-5.1); SODIUM LEVEL 143 MEQ/L (136-145)
== END ==
LOC: M LRY 13:07
DX: I25.10 Atherosclerotic heart disease of native coronary artery without angina pectoris (principal); R94.39 Abnormal result of other cardiovascular function study
CPT/HCPCS: 80048

== ENCOUNTER → 2017-10-11 | Outpatient (CLI) | payer MEDICARE, OTHER ==
[2017-10-11 11:10] LABS: INR 1.53; PROTHROMBIN TIME 18.8 SECONDS (12.4-14.5)
== END ==
LOC: M LRY 08:39
DX: Z79.01 Long term (current) use of anticoagulants (principal)
CPT/HCPCS: 85610

== ENCOUNTER → 2017-10-15 | Outpatient (CLI) | payer MEDICARE, OTHER ==
[2017-10-15 11:38] LABS: INR 2.53; PROTHROMBIN TIME 28.3 SECONDS (12.4-14.5)
== END ==
LOC: M LRY 09:27
DX: I48.91 Unspecified atrial fibrillation (principal)
CPT/HCPCS: 85610

== ENCOUNTER → 2017-10-18 | Outpatient (CLI) | payer MEDICARE, OTHER ==
[2017-10-18 11:49] LABS: INR 3.51; PROTHROMBIN TIME 36.9 SECONDS (12.4-14.5)
== END ==
LOC: M LRY 09:31
DX: Z79.01 Long term (current) use of anticoagulants (principal)
CPT/HCPCS: 85610

== ENCOUNTER → 2017-11-01 | Outpatient (CLI) | payer MEDICARE, OTHER ==
[2017-11-01 14:12] LABS: INR 2.26; PROTHROMBIN TIME 25.8 SECONDS (12.4-14.5)
== END ==
LOC: M LRY 13:06
DX: Z79.01 Long term (current) use of anticoagulants (principal); I48.0 Paroxysmal atrial fibrillation
CPT/HCPCS: 85610

== ENCOUNTER → 2017-11-15 | Outpatient (CLI) | payer MEDICARE, OTHER ==
[2017-11-15 11:32] LABS: INR 1.76; PROTHROMBIN TIME 21.1 SECONDS (12.4-14.5)
== END ==
LOC: M LRY 08:44
DX: Z51.81 Encounter for therapeutic drug level monitoring (principal); Z79.01 Long term (current) use of anticoagulants; I48.0 Paroxysmal atrial fibrillation
CPT/HCPCS: 85610

== ENCOUNTER → 2017-11-22 | Outpatient (REF) | payer MEDICARE, OTHER ==
[2017-11-23 08:09] LABS: VITAMIN B12 LEVEL 397 PG/ML (247-911)
== END ==
LOC: M LAB REF 17:49
DX: R25.1 Tremor, unspecified (principal)
CPT/HCPCS: 82607

== ENCOUNTER → 2017-11-29 | Outpatient (CLI) | payer MEDICARE, OTHER ==
[2017-11-29 11:50] LABS: INR 1.46; PROTHROMBIN TIME 18.1 SECONDS (12.4-14.5)
== END ==
LOC: M LRY 09:03
DX: Z51.81 Encounter for therapeutic drug level monitoring (principal); Z79.01 Long term (current) use of anticoagulants; I48.0 Paroxysmal atrial fibrillation
CPT/HCPCS: 85610

== ENCOUNTER → 2017-12-03 | Outpatient (RCR) | payer MEDICARE, OTHER | LOC: M CR 08:12 | DX: Z51.89 Encounter for other specified aftercare (principal); Z95.3 Presence of xenogenic heart valve; Z95.1 Presence of aortocoronary bypass graft | CPT/HCPCS: 93798 ==

== ENCOUNTER 2017-12-06 08:10 | Outpatient (RCR) | payer MEDICARE, OTHER | END 2018-01-03 | LOC: M CR 08:10 | DX: Z51.89 Encounter for other specified aftercare (principal); Z95.3 Presence of xenogenic heart valve; Z95.1 Presence of aortocoronary bypass graft | CPT/HCPCS: 93798 ==

== ENCOUNTER → 2017-12-06 | Outpatient (CLI) | payer MEDICARE, OTHER ==
[2017-12-06 12:16] LABS: INR 1.37; PROTHROMBIN TIME 17.2 SECONDS (12.4-14.5)
== END ==
LOC: M LRY 08:48
DX: I48.0 Paroxysmal atrial fibrillation (principal); Z79.01 Long term (current) use of anticoagulants
CPT/HCPCS: 85610

== ENCOUNTER → 2017-12-07 | Outpatient (CLI) | payer MEDICARE, OTHER ==
[2017-12-07 12:33] LABS: PROTHROMBIN TIME 18.5 SECONDS (12.4-14.5)
== END ==
LOC: M LRY 09:24
DX: Z51.81 Encounter for therapeutic drug level monitoring (principal); Z79.01 Long term (current) use of anticoagulants; I48.0 Paroxysmal atrial fibrillation
CPT/HCPCS: 85610

== ENCOUNTER → 2017-12-10 | Outpatient (CLI) | payer MEDICARE, OTHER ==
[2017-12-10 11:58] LABS: INR 1.87; PROTHROMBIN TIME 22.1 SECONDS (12.4-14.5)
== END ==
LOC: M LRY 09:22
DX: I48.0 Paroxysmal atrial fibrillation (principal); Z79.01 Long term (current) use of anticoagulants
CPT/HCPCS: 85610

== ENCOUNTER → 2017-12-17 | Outpatient (CLI) | payer MEDICARE, OTHER ==
[2017-12-17 12:26] LABS: PROTHROMBIN TIME 33.3 SECONDS (12.4-14.5)
== END ==
LOC: M LRY 09:39
DX: I48.0 Paroxysmal atrial fibrillation (principal); Z79.01 Long term (current) use of anticoagulants
CPT/HCPCS: 85610

== ENCOUNTER → 2018-01-02 | Outpatient (CLI) | payer MEDICARE, OTHER ==
[2018-01-02 11:45] LABS: INR 1.82; PROTHROMBIN TIME 21.6 SECONDS (12.4-14.5)
== END ==
LOC: M LRY 09:34
DX: I48.0 Paroxysmal atrial fibrillation (principal); Z79.01 Long term (current) use of anticoagulants
CPT/HCPCS: 85610

== ENCOUNTER 2018-01-04 09:39 | Outpatient (RCR) | payer MEDICARE, OTHER | END 2018-02-02 | LOC: M CR 09:39 | DX: Z51.89 Encounter for other specified aftercare (principal); Z95.3 Presence of xenogenic heart valve; Z95.1 Presence of aortocoronary bypass graft | CPT/HCPCS: 93798 ==

== ENCOUNTER → 2018-01-16 | Outpatient (CLI) | payer MEDICARE, OTHER ==
[2018-01-16 12:01] LABS: INR 2.38; PROTHROMBIN TIME 26.9 SECONDS (12.4-14.5)
== END ==
LOC: M LRY 09:57
DX: I48.0 Paroxysmal atrial fibrillation (principal); Z79.01 Long term (current) use of anticoagulants
CPT/HCPCS: 85610

== ENCOUNTER 2018-02-04 10:26 | Outpatient (RCR) | payer MEDICARE, OTHER | END 2018-03-05 | LOC: M CR 10:26 | DX: Z51.89 Encounter for other specified aftercare (principal); Z95.3 Presence of xenogenic heart valve; Z95.1 Presence of aortocoronary bypass graft | CPT/HCPCS: 93798 ==

== ENCOUNTER → 2018-02-13 | Outpatient (CLI) | payer MEDICARE, OTHER ==
[2018-02-13 12:12] LABS: INR 1.98; PROTHROMBIN TIME 22.9 SECONDS (12.1-14.4)
== END ==
LOC: M LRY 09:25
DX: I48.0 Paroxysmal atrial fibrillation (principal); Z79.01 Long term (current) use of anticoagulants
CPT/HCPCS: 85610

== ENCOUNTER 2018-02-22 13:04 | Emergency (ER) | payer MEDICARE, OTHER ==
[2018-02-22] MEDS: ASPIRIN 81 MG CHEW TABLET PO (13:45)
[2018-02-22] MEDS: NS 1,000 ML IV (13:45)
[2018-02-22 14:24] LABS: BASO # 0.1 10^3/uL (0.0-0.2); BASO % 0.7 % (0.0-1.0); EOS # 0.1 10^3/uL (0.0-0.50); EOS % 1.6 % (0.0-3.0); HEMATOCRIT 38.1 % (42.0-52.0); HEMOGLOBIN 13.2 g/dl (13.5-17.5); IMMATURE GRANULOCYTE % 0.7 % (0-3.0); LYMPH # 0.7 10^3/uL (1.5-4.5); LYMPH % 10.4 % (24.0-44.0); MEAN CORPUSCULAR HEMOGLOBIN 28.8 pg (27.0-33.0); MEAN CORPUSCULAR HGB CONC 34.6 g/dl (32.0-36.5); MONO # 0.6 10^3/uL (0.0-0.8); MONO % 8.4 % (0.0-5.0); NEUTROPHILS # 5.2 10^3/uL (1.8-7.7); NEUTROPHILS % 78.2 % (36.0-66.0); PLATELET COUNT, AUTOMATED 226 10^3/uL (150-450); RED BLOOD COUNT 4.59 10^6/uL (4.30-6.10); RED CELL DISTRIBUTION WIDTH 14.6 % (11.5-14.5); WHITE BLOOD COUNT 6.7 10^3/uL (4.0-10.0)
[2018-02-22 14:40] LABS: INR 2.41; PROTHROMBIN TIME 26.7 SECONDS (12.1-14.4)
[2018-02-22 14:53] LABS: ANION GAP 9 MEQ/L (8-16); BLOOD UREA NITROGEN 29 MG/DL (7-18); CALCIUM LEVEL 8.9 MG/DL (8.8-10.2); CARBON DIOXIDE LEVEL 32 MEQ/L (21-32); CHLORIDE LEVEL 96 MEQ/L (98-107); CK-MB VALUE MASS < 1.0 NG/ML (<3.6); CPK CREATINE PHOSPHOKINASE 126 U/L (39-308); CREATININE FOR GFR 1.61 MG/DL (0.70-1.30); GLOMERULAR FILTRATION RATE 44.6 (>42); GLUCOSE, FASTING 97 MG/DL (70-100); MB/CK RELATIVE INDEX 0.79 (< OR =4); NT-PRO BNP 830 PG/ML (<450); POTASSIUM SERUM 4.9 MEQ/L (3.5-5.1); SODIUM LEVEL 137 MEQ/L (136-145); TROPONIN I < 0.02 NG/ML (< 0.10)
== END 2018-02-22 17:12 | disposition home or self-care (01) ==
LOC: M ED 13:04
DX: R53.83 Other fatigue (principal); R68.83 Chills (without fever); R63.4 Abnormal weight loss; R06.02 Shortness of breath; I25.10 Atherosclerotic heart disease of native coronary artery without angina pectoris; Z95.1 Presence of aortocoronary bypass graft; Z95.5 Presence of coronary angioplasty implant and graft; Z79.899 Other long term (current) drug therapy; Z79.82 Long term (current) use of aspirin; Z79.01 Long term (current) use of anticoagulants; Z88.8 Allergy status to other drugs, medicaments and biological substances; Z87.891 Personal history of nicotine dependence
CPT/HCPCS: 71045

== ENCOUNTER → 2018-02-22 | Outpatient (REF) | payer MEDICARE, OTHER ==
[2018-02-22 14:16] LABS: TROPONIN I < 0.02 NG/ML (< 0.10)
[2018-02-22 14:16] LABS: C REACTIVE PROTEIN QUANTITATIV 5.97 MG/DL (0.00-0.30)
== END ==
LOC: M LAB REF 13:57
DX: R68.83 Chills (without fever) (principal); R63.4 Abnormal weight loss; R06.02 Shortness of breath

== ENCOUNTER → 2018-03-13 | Outpatient (CLI) | payer MEDICARE, OTHER ==
[2018-03-13 12:28] LABS: INR 1.48; PROTHROMBIN TIME 18.2 SECONDS (12.1-14.4)
== END ==
LOC: M LRY 09:16
DX: I48.0 Paroxysmal atrial fibrillation (principal); Z79.01 Long term (current) use of anticoagulants
CPT/HCPCS: 85610

== ENCOUNTER → 2018-05-06 | Outpatient (CLI) | payer MEDICARE, OTHER | LOC: M RAD 08:10 | DX: G30.1 Alzheimer's disease with late onset (principal); I73.9 Peripheral vascular disease, unspecified ==

== ENCOUNTER → 2018-05-06 | Outpatient (CLI) | payer MEDICARE, OTHER ==
[2018-05-06 17:32] LABS: BASO # 0.1 10^3/uL (0.0-0.2); BASO % 0.9 % (0.0-1.0); EOS # 0.1 10^3/uL (0.0-0.50); EOS % 1.7 % (0.0-3.0); HEMATOCRIT 40.4 % (42.0-52.0); HEMOGLOBIN 13.2 g/dl (13.5-17.5); IMMATURE GRANULOCYTE % 0.5 % (0-3.0); LYMPH # 0.9 10^3/uL (1.5-4.5); LYMPH % 11.4 % (24.0-44.0); MEAN CORPUSCULAR HEMOGLOBIN 29.9 pg (27.0-33.0); MEAN CORPUSCULAR HGB CONC 32.7 g/dl (32.0-36.5); MEAN CORPUSCULAR VOLUME 91.4 fl (80.0-96.0); MONO # 0.4 10^3/uL (0.0-0.8); MONO % 5.2 % (0.0-5.0); NEUTROPHILS # 6.2 10^3/uL (1.8-7.7); NEUTROPHILS % 80.3 % (36.0-66.0); PLATELET COUNT, AUTOMATED 225 10^3/uL (150-450); RED BLOOD COUNT 4.42 10^6/uL (4.30-6.10); RED CELL DISTRIBUTION WIDTH 13.2 % (11.5-14.5); WHITE BLOOD COUNT 7.7 10^3/uL (4.0-10.0)
[2018-05-06 17:52] LABS: ALBUMIN 3.7 GM/DL (3.2-5.2); ALBUMIN/GLOBULIN RATIO 1.19 (1.00-1.93); ALKALINE PHOSPHATASE 83 U/L (45-117); ALT/SGPT 19 U/L (12-78); ANION GAP 8 MEQ/L (8-16); AST/SGOT 19 U/L (7-37); BILIRUBIN,TOTAL 0.6 MG/DL (0.2-1.0); BLOOD UREA NITROGEN 17 MG/DL (7-18); CALCIUM LEVEL 9.4 MG/DL (8.8-10.2); CARBON DIOXIDE LEVEL 30 MEQ/L (21-32); CHLORIDE LEVEL 103 MEQ/L (98-107); CREATININE FOR GFR 0.97 MG/DL (0.70-1.30); GLOMERULAR FILTRATION RATE > 60.0 (>42); GLUCOSE, FASTING 79 MG/DL (70-100); POTASSIUM SERUM 4.3 MEQ/L (3.5-5.1); RHEUMATOID FACTOR QUANT < 10.0 IU/ML (<15.0); SODIUM LEVEL 141 MEQ/L (136-145); THYROID STIMULATING HORMONE 0.475 uIU/ML (0.358-3.740); THYROXINE (T4) 7.5 UG/DL (4.5-12.0); TOTAL PROTEIN 6.8 GM/DL (6.4-8.2)
[2018-05-06 17:54] LABS: FOLATE 17.8 NG/ML (>5.4)
[2018-05-06 18:13] LABS: ERYTHROCYTE SEDIMENTATION RATE 30 mm/hr (0-20)
== END ==
LOC: M LRY 10:19
DX: E06.9 Thyroiditis, unspecified (principal); G30.1 Alzheimer's disease with late onset; I73.9 Peripheral vascular disease, unspecified; Z11.2 Encounter for screening for other bacterial diseases
CPT/HCPCS: 70450

== ENCOUNTER → 2018-09-25 | Outpatient (CLI) | payer MEDICARE, OTHER ==
[~2018-09-25] MED LIST changes: +ACET160S5 PO; +ADV250INH INH; -AMLO5TAB2; +AMLO5TAB6; +AMLO5TAB6 PO; +ASCO25TA PO; +ASPI81TA85 PO; +COUM2TAB22 PO; +DAILTAB65 PO; +FERR325T16 PO; +FEXO180T58 PO; +FLON1SPR; +FOLI1TAB11 PO; +FURO20TA2 PO; -LOSA50TA20 PO; +LOSA50TA88 PO; +MAGN400C3 PO; +PANT40TA3 PO; +PRIM250T8 PO; +STOO100C PO; +TORS5TAB2 PO; +VALS1TAB49 PO
[2018-09-25 12:30] LABS: BLOOD UREA NITROGEN 18 MG/DL (7-18); CALCIUM LEVEL 8.6 MG/DL (8.8-10.2); CARBON DIOXIDE LEVEL 29 MEQ/L (21-32); CHLORIDE LEVEL 106 MEQ/L (98-107); CREATININE FOR GFR 0.99 MG/DL (0.70-1.30); GLOMERULAR FILTRATION RATE > 60.0 (>42); GLUCOSE, FASTING 89 MG/DL (70-100); POTASSIUM SERUM 4.4 MEQ/L (3.5-5.1); SODIUM LEVEL 140 MEQ/L (136-145)
[2018-09-25 12:31] LABS: CHOLESTEROL LEVEL 149 MG/DL (<200); CHOLESTEROL RISK RATIO 2.921 (<5); HDL CHOLESTEROL 51 MG/DL (>40); LDL CHOLESTEROL 81 MG/DL (<100); MAGNESIUM LEVEL 2.3 MG/DL (1.8-2.4); NON-HDL-C 98 MG/DL; NT-PRO BNP 436 PG/ML (<450); TRIGLYCERIDES LEVEL 84 MG/DL (<150)
== END ==
LOC: M LRY 08:03
PROVIDERS: ATTEND Internal Medicine Cardiovascular Disease
DX: I50.32 Chronic diastolic (congestive) heart failure (principal); I11.0 Hypertensive heart disease with heart failure; E78.00 Pure hypercholesterolemia, unspecified

== ENCOUNTER → 2019-03-24 | Outpatient (REF) | payer MEDICARE, OTHER ==
[~2019-03-24] MED LIST changes: -/ESOM40CA PO; -ACET160S5 PO; -ASCO25TA PO; +MM S100C PO; +NEXI1CAP3 PO; -STOO100C PO; +TGTSUS3 PO; +VITA1TAB23 PO
[2019-03-24 11:23] LABS: HEMATOCRIT 41.9 % (42.0-52.0); HEMOGLOBIN 13.7 g/dl (13.5-17.5); MEAN CORPUSCULAR HEMOGLOBIN 31.4 pg (27.0-33.0); MEAN CORPUSCULAR HGB CONC 32.7 g/dl (32.0-36.5); MEAN CORPUSCULAR VOLUME 96.1 fl (80.0-96.0); PLATELET COUNT, AUTOMATED 143 10^3/uL (150-450); RED BLOOD COUNT 4.36 10^6/uL (4.30-6.10); WHITE BLOOD COUNT 7.8 10^3/uL (4.0-10.0)
[2019-03-24 11:46] LABS: BLOOD UREA NITROGEN 19 MG/DL (7-18); CALCIUM LEVEL 8.9 MG/DL (8.8-10.2); CARBON DIOXIDE LEVEL 31 MEQ/L (21-32); CHLORIDE LEVEL 107 MEQ/L (98-107); CREATININE FOR GFR 0.94 MG/DL (0.70-1.30); GLOMERULAR FILTRATION RATE > 60.0 (>42); GLUCOSE, FASTING 92 MG/DL (70-100); POTASSIUM SERUM 4.4 MEQ/L (3.5-5.1); SODIUM LEVEL 142 MEQ/L (136-145)
== END ==
LOC: M LAB REF 11:08
PROVIDERS: ATTEND Physician Assistant
DX: I50.32 Chronic diastolic (congestive) heart failure (principal)

== ENCOUNTER → 2020-01-06 | Outpatient (REF) | payer MEDICARE, OTHER ==
[~2020-01-06] MED LIST changes: -MONT10TA2 PO; +MONT10TA4 PO; -ROPI2TAB; -ROPI2TAB PO; +ROPI2TAB3; +ROPI2TAB3 PO; -VALS1TAB49 PO; +VALS40TA9 PO
[2020-01-06 17:08] LABS: PERCENT SATURATION 41.8 % (19.7-50.0)
== END ==
LOC: M LAB REF 16:11
PROVIDERS: ATTEND Internal Medicine
DX: D50.9 Iron deficiency anemia, unspecified (principal)

== ENCOUNTER 2020-01-27 14:00 | Emergency (ER) | payer MEDICARE, OTHER ==
[~2020-01-27] VITALS: Ht 177.8 cm; Wt 72.1 kg
[~2020-01-27 14:00] MED LIST changes: +AMLO1TAB24; +AMLO1TAB24 PO; -AMLO5TAB6; -AMLO5TAB6 PO; +ASCO250T20 PO; -ASPI81TA85 PO; +ASPI81TA86 PO; +PANT40TA29 PO; -PANT40TA3 PO; -VITA1TAB23 PO
[2020-01-27] MEDS ORDERED: MIRT1TAB15 (14:12)
[2020-01-27 15:13] LABS: BASO # 0.1 10^3/uL (0.0-0.2); BASO % 0.9 % (0.0-1.0); EOS # 0.2 10^3/uL (0.0-0.5); EOS % 3.1 % (0.0-3.0); HEMOGLOBIN 13.2 g/dl (13.5-17.5); LYMPH # 0.8 10^3/uL (1.5-5.0); LYMPH % 12.8 % (24.0-44.0); MEAN CORPUSCULAR HEMOGLOBIN 31.7 pg (27.0-33.0); MEAN CORPUSCULAR HGB CONC 33.8 g/dl (32.0-36.5); MEAN CORPUSCULAR VOLUME 93.8 fl (80.0-96.0); MONO # 0.5 10^3/uL (0.0-0.8); MONO % 7.5 % (0.0-5.0); NEUTROPHILS # 4.9 10^3/uL (1.5-8.5); NEUTROPHILS % 75.2 % (36.0-66.0); PLATELET COUNT, AUTOMATED 153 10^3/uL (150-450); RED BLOOD COUNT 4.16 10^6/uL (4.30-6.10); WHITE BLOOD COUNT 6.5 10^3/uL (4.0-10.0)
[2020-01-27] MEDS ORDERED: FERR32TA (15:29)
[2020-01-27] MEDS ORDERED: ESCI10TA2 (15:29)
[2020-01-27] MEDS ORDERED: ATOR40TA75 (15:29)
[2020-01-27 15:43] LABS: ALBUMIN 3.4 GM/DL (3.2-5.2); ALT/SGPT 15 U/L (12-78); BILIRUBIN,DIRECT 0.2 MG/DL (0.0-0.2); BILIRUBIN,TOTAL 0.6 MG/DL (0.2-1.0); BLOOD UREA NITROGEN 22 MG/DL (7-18); CALCIUM LEVEL 8.6 MG/DL (8.8-10.2); CARBON DIOXIDE LEVEL 28 MEQ/L (21-32); CHLORIDE LEVEL 108 MEQ/L (98-107); CPK CREATINE PHOSPHOKINASE 57 U/L (39-308); CREATININE FOR GFR 1.14 MG/DL (0.70-1.30); GLOMERULAR FILTRATION RATE > 60.0 (>42); GLUCOSE, FASTING 88 MG/DL (70-100); MB/CK RELATIVE INDEX 1.75 (< OR =4); SODIUM LEVEL 141 MEQ/L (136-145); THYROID STIMULATING HORMONE 0.485 uIU/ML (0.358-3.740); TOTAL PROTEIN 6.3 GM/DL (6.4-8.2); TROPONIN I < 0.02 NG/ML (< 0.10)
[2020-01-27 16:15] VITALS: BP 146/64
--- NOTE | 2020-01-27 16:19 | REP ---
PORTABLE CHEST X-RAY: Single view. HISTORY: Trauma. COMPARISON CHEST X-RAY: February 22, 2018. FINDINGS: Monitoring electrodes are seen. A bipolar pacemaker is again noted in place. Median sternotomy wires and aortic valve replacement is seen. The heart is borderline unchanged. There is chronic blunting of the pleural angles bilaterally. There is no evidence of pneumothorax or new hydrothorax. The aorta is calcific and tortuous. No acute rib or other fracture is seen. IMPRESSION: Prior sternotomy and aortic valve replacement with pacemaker. Chronic blunting of the pleural angles. No acute abnormality. Electronically Signed by Cade Calloway MD 01/27/2020 05:17 P
--- NOTE | 2020-01-27 23:07 | REP ---
CT BRAIN WITHOUT CONTRAST: CT brain performed without IV contrast. Coronal reconstruction images are performed. Comparison made with prior study of 05/06/2018. There is again moderate atrophy. There is no midline shift or mass effect. There are chronic small vessel ischemic changes, which are stable. There is no acute intracranial hemorrhage or extra-axial fluid collection. Vascular calcifications are seen in the carotid siphons. No skull fracture is seen. IMPRESSION: Stable chronic findings. No evidence of acute intracranial hemorrhage or skull fracture. Electronically Signed by Saturnino Wilson MD 01/28/2020 04:57 P
--- NOTE | 2020-01-27 23:09 | REP ---
CT CERVICAL SPINE: CT cervical spine performed in the axial plane. Sagittal and coronal reconstruction images are performed. I see no fracture or dislocation. Vertebral bodies are normal in height and are well aligned. There is no prevertebral soft tissue swelling. There is mild spurring diffusely. There is mild disc space narrowing with subchondral sclerosis and vacuum at C5-6. There is moderate narrowing and subchondral sclerosis at C6-7. No abnormal density is seen in the spinal canal. IMPRESSION: Degenerative changes without fracture or dislocation. Electronically Signed by Saturnino Wilson MD 01/28/2020 04:57 P
--- NOTE | 2020-01-28 09:37 | ECGEPIP ---
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
== END 2020-01-27 17:25 | disposition home or self-care (01) ==
LOC: M ED 14:00
DX: S09.90XA Unspecified injury of head, initial encounter (principal); W01.0XXA Fall on same level from slipping, tripping and stumbling without subsequent striking against object, initial encounter; I10 Essential (primary) hypertension; F32.9 Major depressive disorder, single episode, unspecified; K21.9 Gastro-esophageal reflux disease without esophagitis; Z79.82 Long term (current) use of aspirin; Z79.899 Other long term (current) drug therapy; Z88.8 Allergy status to other drugs, medicaments and biological substances; Z95.818 Presence of other cardiac implants and grafts; Z95.0 Presence of cardiac pacemaker; Y92.9 Unspecified place or not applicable; Y93.9 Activity, unspecified; Y99.9 Unspecified external cause status

== ENCOUNTER 2020-02-05 16:47 | Emergency (ER) | payer MEDICARE, OTHER ==
[~2020-02-05] VITALS: Ht 177.8 cm; Wt 70.6 kg
[~2020-02-05 16:47] MED LIST changes: -AMLO1TAB24; -AMLO1TAB24 PO; +AMLO5TAB6; +AMLO5TAB6 PO; -ASCO250T20 PO; +ASPI81TA85 PO; -ASPI81TA86 PO; +ATOR40TA75; +ESCI10TA2; +FERR32TA; +MIRT1TAB15; -PANT40TA29 PO; +PANT40TA3 PO; +VITA1TAB23 PO
[2020-02-05] MEDS ORDERED: MIRT1TAB15 (17:02)
[2020-02-05] MEDS ORDERED: MEMA10TA19 (17:02)
[2020-02-05] MEDS ORDERED: RAMI1CAP22 (17:02)
[2020-02-05] MEDS ORDERED: MAGN400T3 (17:02)
--- NOTE | 2020-02-05 18:08 | REPVR ---
PROCEDURE INFORMATION: Exam: CT Cervical Spine Without Contrast Exam date and time: 02/05/2020 5:51 PM Age: 79 years old Clinical indication: Injury or trauma; Fall; Initial encounter; Blunt trauma TECHNIQUE: Imaging protocol: Computed tomography images of the cervical spine without contrast. Radiation optimization: All CT scans at this facility use at least one of these dose optimization techniques: automated exposure control; mA and/or kV adjustment per patient size (includes targeted exams where dose is matched to clinical indication); or iterative reconstruction. COMPARISON: CT Spine,cervical w/o contrast 01/27/2020 2:45 PM FINDINGS: Vertebrae: No acute fracture. Normal alignment. There is multilevel uncovertebral and facet hypertrophy with neural foramina narrowing. Soft tissues: Unremarkable. Lungs: Lung apices are normal. IMPRESSION: No acute abnormality. Electronically signed by: Clay Turcios On 02/05/2020 18:08:35 PM
--- NOTE | 2020-02-05 18:14 | REPVR ---
PROCEDURE INFORMATION: Exam: CT Head Without Contrast Exam date and time: 02/05/2020 5:51 PM Age: 79 years old Clinical indication: Injury or trauma; Fall; Initial encounter; Blunt trauma (contusions or hematomas) TECHNIQUE: Imaging protocol: Computed tomography of the head without contrast. Radiation optimization: All CT scans at this facility use at least one of these dose optimization techniques: automated exposure control; mA and/or kV adjustment per patient size (includes targeted exams where dose is matched to clinical indication); or iterative reconstruction. COMPARISON: CT Head without contrast 01/27/2020 2:45 PM FINDINGS: Brain: There are moderate periventricular and subcortical lucencies consistent with chronic microvascular ischemic changes. Encephalomalacia in the left frontal lobe. Ventricles: Normal. No ventriculomegaly. Bones/joints: Unremarkable. No acute fracture. Sinuses: Visualized sinuses are unremarkable. No fluid levels. Mastoid air cells: Visualized mastoid air cells are well aerated. Vasculature: Vascular calcifications. Soft tissues: Unremarkable. IMPRESSION: No acute intracranial abnormality. Chronic microvascular ischemic changes. Electronically signed by: Clay Turcios On 02/05/2020 18:13:40 PM
--- NOTE | 2020-02-05 18:25 | REP ---
Clinical: Shortness of breath. Comparison: 01/27/2020. Findings: Mediastinum and cardiac silhouette are stable with evidence for prior sternotomy, aortic valve repair, CABG, and pacemaker. Lung sumner demonstrate chronic changes with superimposed bibasilar atelectasis and small pleural effusions. Early pulmonary vascular congestion cannot be excluded. No pneumothorax. Skeletal structures intact. Impression: 1. Chronic-appearing changes. 2. Superimposed bibasilar atelectasis and small pleural effusions. Differential diagnosis includes pneumonia as well as early pulmonary vascular congestion. Electronically Signed by Tyrone Fox MD 02/05/2020 06:17 P
[2020-02-05 18:32] LABS: BASO # 0.1 10^3/uL (0.0-0.2); BASO % 0.6 % (0.0-1.0); EOS # 0.1 10^3/uL (0.0-0.5); EOS % 0.7 % (0.0-3.0); HEMATOCRIT 42.3 % (42.0-52.0); LYMPH # 0.6 10^3/uL (1.5-5.0); LYMPH % 5.7 % (24.0-44.0); MEAN CORPUSCULAR HEMOGLOBIN 31.5 pg (27.0-33.0); MEAN CORPUSCULAR HGB CONC 33.1 g/dl (32.0-36.5); MEAN CORPUSCULAR VOLUME 95.1 fl (80.0-96.0); MONO # 0.5 10^3/uL (0.0-0.8); MONO % 5.2 % (0.0-5.0); NEUTROPHILS # 8.5 10^3/uL (1.5-8.5); NEUTROPHILS % 87.3 % (36.0-66.0); PLATELET COUNT, AUTOMATED 179 10^3/uL (150-450); RED BLOOD COUNT 4.45 10^6/uL (4.30-6.10); WHITE BLOOD COUNT 9.8 10^3/uL (4.0-10.0)
[2020-02-05 19:08] LABS: ALT/SGPT 18 U/L (12-78); BILIRUBIN,DIRECT 0.2 MG/DL (0.0-0.2); BILIRUBIN,TOTAL 0.7 MG/DL (0.2-1.0); BLOOD UREA NITROGEN 23 MG/DL (7-18); CALCIUM LEVEL 9.2 MG/DL (8.8-10.2); CARBON DIOXIDE LEVEL 30 MEQ/L (21-32); CHLORIDE LEVEL 106 MEQ/L (98-107); CK-MB VALUE MASS 1.5 NG/ML (<3.6); CPK CREATINE PHOSPHOKINASE 102 U/L (39-308); CREATININE FOR GFR 1.33 MG/DL (0.70-1.30); FREE T4 1.47 NG/DL (0.76-1.46); GLOMERULAR FILTRATION RATE 55.4 (>42); GLUCOSE, FASTING 93 MG/DL (70-100); MB/CK RELATIVE INDEX 1.47 (< OR =4); NT-PRO BNP 716 PG/ML (<450); POTASSIUM SERUM 4.7 MEQ/L (3.5-5.1); SODIUM LEVEL 140 MEQ/L (136-145); THYROID STIMULATING HORMONE 0.996 uIU/ML (0.358-3.740); TOTAL PROTEIN 7.3 GM/DL (6.4-8.2); TROPONIN I < 0.02 NG/ML (< 0.10)
[2020-02-05] MEDS ORDERED: ISOVUE-370 76% 100ML VIAL As Ordered ONE (21:26)
--- NOTE | 2020-02-05 22:40 | REPVR ---
PROCEDURE INFORMATION: Exam: CT Abdomen And Pelvis With Contrast Exam date and time: 02/05/2020 9:44 PM Age: 79 years old Clinical indication: Other: Diarrhea; Abdominal pain; Additional info: Diarrhea, abd pain TECHNIQUE: Imaging protocol: Computed tomography of the abdomen and pelvis with intravenous contrast. Radiation optimization: All CT scans at this facility use at least one of these dose optimization techniques: automated exposure control; mA and/or kV adjustment per patient size (includes targeted exams where dose is matched to clinical indication); or iterative reconstruction. Contrast material: ISOVUE 370; Contrast volume: 100 ml; Contrast route: INTRAVENOUS (IV); COMPARISON: No relevant prior studies available. FINDINGS: Lungs: Calcified granuloma in the right lung base. Bilateral increased interstitial markings in the lungs likely chronic. Bibasilar atelectasis, left greater than light. Pleural space: Pleural calcification and thickening Heart: Cardiomegaly. Mediastinal space: Small hiatal hernia. Liver: Normal. No mass. Gallbladder and bile ducts: Normal. No calcified stones. No ductal dilation. Pancreas: Normal. No ductal dilation. Spleen: Calcified granulomas in the spleen. Adrenals: Normal. No mass. Kidneys and ureters: Right kidney is unremarkable. Simple cyst in the left kidney, largest 1 is measuring approximately 17.7 mm. No stones. No hydroureteronephrosis. Stomach and bowel: Moderate to large fecal loading in the rectum with mild rectal wall thickening and presacral edema. No bowel dilatation or obstruction. Appendix: No evidence of appendicitis. Intraperitoneal space: Unremarkable. No free air. No significant fluid collection. Vasculature: Infrarenal abdominal aortic aneurysm measuring 3.1 x 3.3 cm with atherosclerosis and soft thrombus. Atherosclerosis of aortic branches. Lymph nodes: Unremarkable. No enlarged lymph nodes. Bladder: Unremarkable as visualized. Reproductive: Unremarkable as visualized. Bones/joints: Status post sternotomy. Diffuse demineralization of the bones with degenerative changes. Soft tissues: Unremarkable. IMPRESSION: Moderate to large fecal loading in the rectum with mild rectal wall thickening and presacral edema. No bowel dilatation or obstruction. COMMENTS: Consistent with the [employer]'s Incidental Findings Committee white paper (J Am Octavia Radiol 2018): Any incidental renal lesion less than 1.0 cm or classified as too small to characterize, or any incidental cystic renal lesion characterized as simple-appearing, is likely benign. No follow-up imaging is recommended for these lesions per consensus recommendations based on imaging criteria. Electronically signed by: Gracie Jacob On 02/05/2020 22:40:10 PM
[2020-02-05] MEDS ORDERED: FLEET ENEMA PR ONE (23:15)
--- NOTE | 2020-02-06 00:52 | ECGEPIP ---
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
[2020-02-06 01:08] VITALS: BP 127/65
--- NOTE | 2020-02-09 09:52 | ED PDOC ---
Post-Departure Follow-Up dr candelaria faxed formal report of cxr for fu Tom Arredondo MD Feb 09, 2020 09:51
== END 2020-02-06 01:16 | disposition home or self-care (01) ==
LOC: M ED 16:47
DX: K59.00 Constipation, unspecified (principal); R91.8 Other nonspecific abnormal finding of lung field; G93.89 Other specified disorders of brain; F03.90 Unspecified dementia, unspecified severity, without behavioral disturbance, psychotic disturbance, mood disturbance, and anxiety; K21.9 Gastro-esophageal reflux disease without esophagitis; K57.30 Diverticulosis of large intestine without perforation or abscess without bleeding; I51.9 Heart disease, unspecified; Z79.899 Other long term (current) drug therapy; Z88.8 Allergy status to other drugs, medicaments and biological substances; Z95.0 Presence of cardiac pacemaker
CPT/HCPCS: 36415; 70450; 71045; 72125; 74177; 80048; 80076; 82550; 82553; 83880; 84439; 84443; 84484; 85025; 93005; 93041; 94760; 99285; Q9967

== ENCOUNTER 2020-05-31 19:43 | Emergency (ER) | payer MEDICARE, OTHER ==
[~2020-05-31] VITALS: Ht 180.3 cm; Wt 65.3 kg
[~2020-05-31 19:43] MED LIST changes: +AMLO1TAB24; +AMLO1TAB24 PO; -AMLO5TAB6; -AMLO5TAB6 PO; +ASCO250T20 PO; -ASPI81TA85 PO; +ASPI81TA86 PO; +MAGN400T3; +MEMA10TA19; +PANT40TA29 PO; -PANT40TA3 PO; +RAMI1CAP22; -VITA1TAB23 PO
[2020-05-31] MEDS ORDERED: FLEET OIL RETENTION ENEMA PR PRN (21:15)
--- NOTE | 2020-05-31 21:17 | REPVR ---
PROCEDURE INFORMATION: Exam: XR Abdomen, 1 View Exam date and time: 05/31/2020 9:08 PM Age: 79 years old Clinical indication: Abdominal pain; Acute; Additional info: Constipation TECHNIQUE: Imaging protocol: XR of the abdomen. Views: Frontal supine view of the abdomen. 1 View. COMPARISON: CT ABD/PEL W/IV CONTRAST ONLY 02/05/2020 9:41 PM FINDINGS: Tubes, catheters and devices: There is a tube or wire overlying the right atrium. Gastrointestinal tract: Moderate bowel gas overall with upper normal size of colonic segments. Moderate scattered stool throughout the colon including the rectum and right colon. Bones/joints: Moderately prominent degenerative spurring in the lumbar spine. Osteopenia. IMPRESSION: 1. Moderate colonic stool, greatest in the right colon and rectum with moderate bowel gas overall. 2. Tube or wire overlying the right atrium. 3. Degenerative changes of the lumbar spine. Electronically signed by: Junaid Mckeon On 05/31/2020 21:17:22 PM
[2020-05-31 22:30] VITALS: BP 131/73
[2020-05-31] MEDS ORDERED: MAGNESIUM CITRATE 300 ML BTL PO ONE (23:00)
== END 2020-05-31 23:30 | disposition home or self-care (01) ==
LOC: M ED 19:43
DX: K59.00 Constipation, unspecified (principal); I11.9 Hypertensive heart disease without heart failure; M51.36 Other intervertebral disc degeneration, lumbar region; M85.80 Other specified disorders of bone density and structure, unspecified site; Z88.8 Allergy status to other drugs, medicaments and biological substances; Z79.899 Other long term (current) drug therapy

== ENCOUNTER → 2020-08-17 | Outpatient (REF) | payer MEDICARE, OTHER ==
[~2020-08-17] MED LIST changes: +ESCI10TA16; -ESCI10TA2; -MONT10TA4 PO; +MONT5TAB2 PO
[2020-08-17 18:12] LABS: PERCENT SATURATION 41.5 % (19.7-50.0)
== END ==
LOC: M LAB REF 16:37
PROVIDERS: ATTEND Internal Medicine
DX: D50.9 Iron deficiency anemia, unspecified (principal)

== ENCOUNTER → 2021-02-17 | Outpatient (REF) | payer MEDICARE, OTHER ==
[~2021-02-17] MED LIST changes: +ACET-1439 PO; +FERR324T21 PO; -FERR325T16 PO; +MONT10TA10 PO; -MONT5TAB2 PO; -TGTSUS3 PO
[2021-02-17 13:12] LABS: PERCENT SATURATION 35.1 % (19.7-50.0)
== END ==
LOC: M LAB REF 12:14
PROVIDERS: ATTEND Internal Medicine
DX: D50.9 Iron deficiency anemia, unspecified (principal); G30.1 Alzheimer's disease with late onset